=== PATIENT | female | born 1985 | race African-American/Black ===

== ENCOUNTER 2018-04-20 20:38 | Emergency (ER) | payer BC ==
[2018-04-20] MEDS ORDERED: Ibuprofen 200 MG TAB ONE (21:06)
[2018-04-20 22:04] LABS: #Lymphocytes 1.8 thou/uL (1.20-3.40); #Monocytes 0.9 thou/uL (0.11-0.59); %Basophils 0.2 % (0.0-1.0); %Eosinophils 0.4 % (0.0-10.0); %Lymphocytes 16.6 % (21.0-51.0); %Neutrophils 74.7 % (42.0-75.0); Hemoglobin 10.4 g/dL (12.0-16.0); Mean Corpuscular HGB CONC 32.1 g/dL (32.0-36.0); Mean Corpuscular Hemoglobin 24.8 pg (27.0-31.0); Mean Corpuscular Volume 77.2 fl (81.0-99.0); Platelet Count 263 thou/uL (130-400); RBC Distribution Width 13.5 % (11.5-14.5); Red Blood Cell (RBC) Count 4.19 mill/uL (4.20-5.40); White Blood Cell (WBC) Count 10.7 thou/uL (4.8-10.8)
[2018-04-20 22:43] LABS: ALT (SGPT) 10 U/L (8-55); AST (SGOT) 13 U/L (5-34); Albumin 3.9 g/dL (3.5-5.0); Alkaline Phosphatase 47 U/L (40-150); Anion Gap 11 mmol/L (10-20); BUN (Urea Nitrogen) 12 mg/dL (7.0-18.7); Bilirubin, Total 0.3 mg/dL (0.2-1.2); Calc. Creatinine Clearance 0 mL/min (70-130); Calcium 8.9 mg/dL (7.8-10.44); Carbon Dioxide 24 mmol/L (22-29); Chloride 104 mmol/L (98-107); Estimated GFR-MDRD Greater than 90; Globulin 3.2 g/dL (2.4-3.5); Glucose 95 mg/dL (70-105); Potassium 3.3 mmol/L (3.5-5.1); Protein, Total 7.1 g/dL (6.0-8.3); Sodium 136 mmol/L (136-145)
[2018-04-20] MEDS ORDERED: Acetaminophen 500 MG TAB ONE (22:46)
[2018-04-20 22:47] LABS: Bilirubin Negative (Negative); Blood, Urine Trace (Negative); Clarity CLEAR (Clear); Glucose, Urine (Dipstick) Negative (Negative); Leukocyte Trace (Negative); Nitrite Negative (Negative); Protein, Urine (Dipstick) Negative (Neg-Trace); Specific Gravity, Urine 1.019 (1.002-1.036)
[2018-04-20 22:49] LABS: Pregnancy Test - Urine (BHCG) Negative (Negative); Pregu Control Background? CLEAR/WHITE (CLR/WHITE); Pregu Control Bar Appear? YES (CONTROL BAR); Specific Gravity 1.019 (1.002-1.036)
[2018-04-20 22:50] LABS: Bacteria/HPF None Seen HPF (None Seen); Hyaline Casts/LPF 4-6 HYALINE CAST LPF (0-3 Hyaline); Pathc Cast-AUWi Flag 0.72 (0-2.49); Squamous Epithelial 0-3 HPF (0-3); WBC/HPF 0-3 HPF (0-3)
[2018-04-20] MEDS ORDERED: Clopidogrel Bisulfate 75 MG TAB ONE (23:13)
[2018-04-20] MEDS ORDERED: Potassium Chloride 20 MEQ TAB ONE (23:13)
--- NOTE | 2018-04-20 23:44 | CT ---
CT OF THE ABDOMEN AND PELVIS WITHOUT CONTRAST 04/20/18 COMPARISON: None. HISTORY: Fever, bodyaches, cough, and abdominal pain. TECHNIQUE: Multiple contiguous axial images were obtained of a CT of the abdomen and pelvis without contrast. Co brent reformats were performed. FINDINGS: The liver, gallbladder, kidneys, adrenal glands, spleen, and pancreas are unremarkable, although eval uation is limited on this noncontrast examination. No free air, free fluid, or stranding changes are seen in the abdomen or pelvis. The reproductive org ans are grossly unremarkable. The large and small bowel are unremarkable. The appendix is not definit shukri seen. No abdominal or pelvic lymphadenopathy are seen. The osseous structures, visualized inferior thorax and abdominal wall soft tissues are unremarkable. IMPRESSION: No evidence of acute intra-abdominal/pelvic abnormality. POS: SARAHH
== END 2018-04-21 00:02 | disposition home or self-care (01) ==
LOC: ERS 20:38
DX: B34.9 Viral infection, unspecified (principal); R31.9 Hematuria, unspecified
CPT/HCPCS: 36415; 74176; 80053; 81003; 81015; 81025; 85025; 87081; 87430; 87804

== ENCOUNTER 2018-05-25 19:04 | Emergency (ER) | payer BC, OTHER | END 2018-05-25 20:15 | disposition home or self-care (01) | LOC: ERS 19:04 | DX: S00.93XA Contusion of unspecified part of head, initial encounter (principal); M62.838 Other muscle spasm; V43.52XA Car driver injured in collision with other type car in traffic accident, initial encounter | CPT/HCPCS: 99283 ==

== ENCOUNTER 2018-05-27 22:41 | Emergency (ER) | payer BC, OTHER ==
[2018-05-27] MEDS ORDERED: Acetaminophen 325 MG TAB ONE (23:17)
[2018-05-27] MEDS ORDERED: Ibuprofen 600 MG TAB ONE (23:17)
--- NOTE | 2018-05-27 23:38 | RAD ---
THREE VIEWS OF THE LUMBOSACRAL SPINE 05/27/18 COMPARISON: None. HISTORY: Back pain that began today at work. FINDINGS: 3 views of the lumbosacral spine shows normal height and alignment of the vertebral bodies and interv ertebral discs without fracture or subluxation. No degenerative changes are seen. IMPRESSION: Unremarkable exam. POS: KERRIE
== END 2018-05-27 23:50 | disposition home or self-care (01) ==
LOC: SCSER 22:41
DX: M54.9 Dorsalgia, unspecified (principal); V89.2XXA Person injured in unspecified motor-vehicle accident, traffic, initial encounter
CPT/HCPCS: 72100

== ENCOUNTER 2019-10-18 23:09 | Emergency (ER) | payer OTHER | END 2019-10-18 23:31 | disposition home or self-care (01) | LOC: SCSER 23:09 | DX: Z48.03 Encounter for change or removal of drains (principal) | CPT/HCPCS: 99282 ==